=== PATIENT | female | born 1965 | race Caucasian/White ===

== ENCOUNTER → 2016-05-12 | Outpatient (CLI) | payer BC ==
[~2016-05-12] MED LIST: BIRTH CONTROL PILL; BISO1TAB41; CYAN10007
--- OUTSIDE RECORDS SUMMARY | 2016-05-12 08:57 | XMS REPORT | Continuity of Care Document ---
Author Author [facility] Organization [facility] Address Unknown Phone Unavailable Care Team Providers Care Wood Technologist Name Role Phone Mariela Samuel PCP [phone] Source Comments Some departments are not documenting in the electronic medical record. If you do not see the information that you expected, contact Release of Information in the Health Information Management department at [phone] for further assistance in locating additional records.[facility] Active Allergies and Adverse Reactions Allergen Noted Date Severity Reactions Comments Codeine 06/30/2015 Low NAUSEA AND VOMITING Current Medications Prescription Sig. Disp. Refills Start End Date Status Date bisoprolol/hydrochlorothi Take by mouth daily. Active azide (ZIAC) 5/6.25 mg tablet Cyanocobalamin 1,[address] under tongue. Active subl vitamins, multiple cap Take 1 Cap by mouth Active daily. Active Problems Problem Noted Date Essential hypertension with goal blood pressure less than 130/80 06/30/2015 Palpitations 06/30/2015 Social History Tobacco Use Types Packs/Day Years Used Date Former Smoker Quit: 06/29/2012 Smokeless Tobacco: Never Used Alcohol Use Drinks/Week oz/Week Comments Yes 10 per week Last Filed Vital Signs Vital Sign Reading Time Taken Blood Pressure 116/70 07/07/2015 9:54 AM CDT Pulse 55 07/07/2015 9:54 AM CDT Temperature - - Respiratory Rate - - Height 1.702 m (5' 7.01") 07/07/2015 9:54 AM CDT Weight 90.901 kg (200 lb 6.4 oz) 07/07/2015 9:54 AM CDT Body Mass Index 31.38 07/07/2015 9:54 AM CDT Oxygen Saturation - - Plan of Care Date Type Specialty Providers Description 09/28/2016 Appointment Gastroenterology Simeon Quan MD [address] [facility] [address] [place] [address] [phone] (Fax) Health Maintenance Due Date Last Done Comments Physical (Comprehensive) 06/06/1974 Exam Pertussis Vaccine 06/06/1978 Tetanus Vaccine 06/06/1984 Cervical Cancer Screening 06/06/1988 Breast Cancer Screening 2007 Influenza Vaccine 10/29/2015 Results from Last 3 Months Not on file
--- NOTE | 2016-05-13 18:22 | Diagnostic Imaging Report ---
Bilateral screening mammogram The current study was also evaluated with a Computer Aided Detection (CAD) system. Indication: Screening. No current complaints stated on the questionnaire. COMPARISON: 04/23/15. FINDINGS: The breasts are composed of heterogeneously dense parenchyma. There is no developing mass, architectural distortion or suspicious cluster of calcification with occasional punctate calcifications seen. Allowing for technique and positional differences, no suspicious change is seen. IMPRESSION: Dense breasts with no definite change. ACR BI-RADS Category 2: Benign findings. Result letter will be mailed to the patient. Note: At least 10% of breast cancer is not imaged by mammography. Dictated by: Dictated on workstation # [id number]
== END ==
LOC: RAD 08:54
PROVIDERS: ATTEND Obstetrics & Gynecology
DX: Z12.31 Encounter for screening mammogram for malignant neoplasm of breast (principal)
CPT/HCPCS: 77067

== ENCOUNTER → 2017-04-06 | Outpatient (CLI) | payer BC ==
--- NOTE | 2017-04-06 15:20 | Diagnostic Imaging Report ---
INDICATION: Abdominal pain, constipation. COMPARISON: None. FINDINGS: KUB and upright views of the abdomen demonstrate no free air, obstruction, or significant constipation. Cholecystectomy clips are present. Osseous structures are age appropriate. IMPRESSION: Negative KUB and upright views of the abdomen. Dictated by: Dictated on workstation # [id number]
== END ==
LOC: RAD 13:05
PROVIDERS: ATTEND Nurse Practitioner Family
DX: K59.00 Constipation, unspecified (principal)
CPT/HCPCS: 74018